=== PATIENT | male | born 1945 | race Caucasian/White ===

== ENCOUNTER → 2016-04-12 | Outpatient (CLI) | payer OTHER, MEDICARE | LOC: BHFA 09:15 | PROVIDERS: ATTEND Internal Medicine Cardiovascular Disease | DX: I48.91 Unspecified atrial fibrillation (principal) ==

== ENCOUNTER → 2016-04-28 | Outpatient (CLI) | payer OTHER, MEDICARE ==
--- NOTE | 2016-04-28 11:04 | US ---
Renal Ultrasound With Doppler Evaluation Indication: Hypertension. Comparison: None available. Technique: The kidneys, abdominal aorta, renal arteries, and renal veins were interrogated with andrews -scale, color, and spectral Doppler imaging. Findings: The right kidney measures 12.3 x 7.4 x 6.5 cm and the left kidney measures approximately 1 2.8 x 7.7 x 6.2 cm. Multiple simple-appearing cysts are present bilaterally, with some difficult to v isualize due to body habitus. The largest cyst is in the mid left kidney, measuring 7.5 x 4.3 cm. The re is no hydronephrosis. Cortical thickness is normal. Doppler analysis reveals patent bilateral renal arteries and veins, with normal waveforms. The arter ial waveforms in the main renal arteries and the interlobar branches reveal normal prompt upstroke ti mes all less than 70 ms. No tardus parvus waveform. The renal artery to aortic velocity ratio is le ss than 3.5 bilaterally (normal). The abdominal aorta is normal caliber, with mild atherosclerosis. The bladder is normal. Bilateral ureteral jets are demonstrated on color Doppler imaging. Impressions: 1. No sonographic evidence of renal artery stenosis. 2. Bilateral renal cysts.
== END ==
LOC: BRMIMAGING 08:31
PROVIDERS: ATTEND Internal Medicine Nephrology
DX: Z03.89 Encounter for observation for other suspected diseases and conditions ruled out (principal); I10 Essential (primary) hypertension; N28.1 Cyst of kidney, acquired
CPT/HCPCS: 76770-PO

== ENCOUNTER → 2016-05-13 | Outpatient (CLI) | payer OTHER, MEDICARE | LOC: BHFA 08:30 | PROVIDERS: ATTEND Internal Medicine Cardiovascular Disease | DX: I50.21 Acute systolic (congestive) heart failure (principal); I08.0 Rheumatic disorders of both mitral and aortic valves | CPT/HCPCS: 78452; 93017; A9500 ==

== ENCOUNTER → 2017-02-27 | Outpatient (CLI) | payer OTHER, MEDICARE | LOC: FIMAGING 11:31 | PROVIDERS: ATTEND Family Medicine | DX: M54.16 Radiculopathy, lumbar region (principal); M51.36 Other intervertebral disc degeneration, lumbar region ==

== ENCOUNTER → 2017-03-06 | Outpatient (CLI) | payer OTHER, MEDICARE | LOC: FIMAGING 09:24 | PROVIDERS: ATTEND Family Medicine | DX: M47.9 Spondylosis, unspecified (principal); R60.9 Edema, unspecified; N28.1 Cyst of kidney, acquired ==

== ENCOUNTER → 2017-05-13 | Outpatient (CLI) | payer OTHER, MEDICARE | LOC: FIMAGING 09:21 | PROVIDERS: ATTEND Internal Medicine Nephrology | DX: N18.2 Chronic kidney disease, stage 2 (mild) (principal); K80.20 Calculus of gallbladder without cholecystitis without obstruction ==

== ENCOUNTER 2017-09-30 22:06 | Emergency (ER) | payer OTHER, MEDICARE ==
--- NOTE | 2017-09-30 22:29 | EDPHY ---
H & P Stated Complaint: fall right eyebrow laceration Source: Patient, Family () Exam Limitations: No limitations - Personal History Current Tetanus Diphtheria and Acellular Pertussis (TDAP): Yes Tetanus Vaccine Date: 2009 - Medical/Surgical History Hx Asthma: No Hx Chronic Respiratory Disease: No Hx Diabetes: No Hx Cardiac Disease: Yes Hx Renal Disease: No Hx Cirrhosis: No Hx Alcoholism: Yes Hx HIV/AIDS: No Hx Splenectomy or Spleen Trauma: No Other PMH: atrial fibrillation. PSHx: achilles tendon transplant, knee surgery , mult orthopedic surgeries - Social History Smoking Status: Never smoked Time Seen by Provider: 09/30/17 22:24 HPI/ROS: HPI: This is a 71-year-old male who presents with Chief Complaint: Fall, R eyebrow lac, blood thinners Location: Right eyebrow Quality: Laceration Duration: Prior to arrival Signs and Symptoms: + bleeding, no radiation, no numbness, no weakness, no tingling, no incontinence, no decreased range of motion, no swelling, no pain, no fever Timing: Acute Severity: [id number] Context: Patient has a history atrial fibrillation on Pradaxa presents accompanied by his for accidentally tripping over the stones on the back patio when he was trying to close the grill. The patient and his report that they had a dinner democrat this evening and were [place] now and drinking wine. Denies any dizziness, chest pain, shortness of breath. He reports that his sandal cuts stuck on the uneven stone outside and he lost his balance and fell forward striking his right eyebrow on the stone. This was witnessed by his . Was ambulatory at the scene and remembers all events. Denies LOC/ head injury/neck pain/dizziness/nausea/vomiting/amnesia. Last tetanus booster given in 2009. Modifying Factors: None Comment: ROS: see HPI Constitutional: No fever, no chills, no weight loss Eyes: No blurred vision Respiratory: No shortness of breath, no cough Cardiovascular: No chest pain Gastrointestinal: No nausea, no vomiting no diarrhea Genitourinary: No dysuria Extremities: No myalgias Neurologic: No weakness, no numbness Skin: No rashes Hematologic: No bruising, no bleeding MEDICAL/SURGICAL/SOCIAL HISTORY: Medical history: atrial fibrillation PSHx: Achilles tendon transplant, knee surgery, multiple orthopedic surgeries Social history: . Retired. CONSTITUTIONAL: Extremely polite and cooperative elderly white male, at bedside, awake and alert, no obvious distress HEENT: 0.5 in deep, simple, linear laceration above the right eyebrow and normocephalic, PERRL, EOMI. no globe entrapment, no raccoon eyes. no Burgess signs.Tympanic membranes clear. No tympanic membrane rupture. Nares patent; no septal hematoma. Oropharynx clear, no exudate and moist pink mucosa. No malocclusion. no dental trauma. Airway patent. No lymphadenopathy. NECK: supple, no midline tenderness, flexion 45 degrees, extension 45 degrees, right and left lateral flexion 45 degrees. No meningismus. Cardiovascular: Normal S1/S2, regular rate, regular rhythm, without murmur rub or gallop. PULMONARY/CHEST: Symmetrical and nontender. no crepitus. Clear to auscultation bilaterally. Good air movement. No accessory muscle usage. ABDOMEN: Soft, nondistended, nontender, no ecchymosis, no rebound, no guarding , no peritoneal signs, no masses or organomegaly. No CVAT. PELVIC: no pain with rocking; bilateral hips flexion 125 degrees, extension 30 degrees, with no pain internal rotation and no pain external rotation. BACK: No midline tenderness, no paraspinous spasm, deep tendon reflexes 2/2, no pain with straight leg raise EXTREMITIES: 2/2 pulses, no deformities, no clubbing, no cyanosis or edema. NEUROLOGICAL: no focal neuro deficits. GCS 15. SKIN: Warm and dry, abrasions noted to right cheek and tip of right nose. no erythema. no rash. Good capillary refill. (Génesis,Terra) Constitutional: Initial Vital Signs Temperature (C) 36.6 C 09/30/17 22:11 Heart Rate 84 09/30/17 22:11 Respiratory Rate 18 09/30/17 22:11 Blood Pressure 122/78 H 09/30/17 22:11 O2 Sat (%) 95 09/30/17 22:11 O2 Delivery Mode Room Air Allergies/Adverse Reactions: No Known Allergies Allergy (Unverified 09/30/17 22:11) Home Medications: Medication Instructions Recorded Calcium Citrate [Citracal] 200 mg PO DAILY 11/21/14 Dabigatran Etexilate Mesyl 150 mg PO BID 11/21/14 [Pradaxa 150 MG (*)] Diltiazem HCl [DILTIAZEM ER] 180 mg PO DAILY@08 11/21/14 Glucosamine Sulfate [Glucosamine 500 mg PO DAILY 11/21/14 Sulfate 500 MG (*)] Herbals/Supplements -Info Only 1 ea PO DAILY 11/21/14 Levothyroxine [Synthroid 25 mcg 25 mcg PO DAILY06 11/21/14 (*)] Magnesium Oxide [Magnesium Oxide 400 mg PO DAILY 11/21/14 400 mg (*)] Ranitidine HCl 150 mg PO BID PRN #30 tablet 11/21/14 Medical Decision Making - Diagnostics Imaging Results: Imaging Impressions Head CT 09/30/17 22:29 Impression: 1. Mild to moderate age-related atrophy. 2. No hemorrhage, mass effect, or definite acute peripheral infarct. 3. Extensive nonspecific hypodensities in the white matter of bilateral cerebral hemispheres. Differential diagnosis includes microvascular ischemic disease, post-infectious/post-inflammatory sequela, atypical demyelinating disease, or migraine-related sequela. Small white matter lacunar infarcts may also have this appearance. 4. Soft tissue swelling superior to the right orbit with associated laceration. 5. Complete opacification of the right maxillary sinus. If symptoms worsen, additional imaging may be necessary. Findings discussed with Oly Capps PAC at 23:26 hour, 09/30/2017. Procedures: Procedure: Laceration repair. Verbal consent was obtained from the patient. The 1/2 inch, complex, deep, linear laceration above the right eyebrow was anesthetized in the usual fashion using 6 mL 0.5% bupivacaine with epinephrine. The wound was irrigated, draped and explored to its base with a gloved finger. There were no deep structures involved. No tendon injury was identified. The wound was repaired with a 2 layer closure; #4 buried horizontal mattress sutures of 5 0 Vicryl and for the subcutaneous layer I used #3, 5-0 Prolene. Good hemostasis was achieved and patient tolerated procedure well. Steri-Strips applied. The procedure was performed by myself. (Oly Capps) ED Course/Re-evaluation: Based on [place] CT head protocol patient is older than 65 years age in on blood thinners there for head CT scan ordered. Based on [facility] protocol cervical CT scan not indicated. Tetanus booster is up-to-date. Fall was accidental and witnessed. There is no indication for syncope, seizure activity, CVA. Called by radiologist who advised that head CT shows no acute intracranial process. Laceration repaired. Verbal and written wound care instructions provided. This patient was seen under the supervision of my secondary supervising physician. I evaluated care for this patient independently. Discussed this patient with Dr. Ramos. (Oly Capps) PHYSICIAN DOCUMENTATION: The patient was evaluated and managed by the Physician Stave Hewer. My co- signature indicates that I have reviewed this chart and I agree with the findings and plan of care as documented. I am the secondary supervising physician. (Meka Ramos) Differential Diagnosis: Head injury including but not limited to concussion, skull fracture, intraparenchymal contusion, subarachnoid, subdural and epidural hematoma. (Oly Capps) Departure - Departure Disposition: Home, Routine, Self-Care Clinical Impression: Laceration of eyebrow without complication, Chronic anticoagulation, Abrasion of face Condition: Good Instructions: Care For Your Stitches (ED), Concussion (ED), Facial Laceration ( ED) Additional Instructions: Keep the laceration and sutures dry for 48 hours. After 48 hours, you may wash the site daily with mild soap and water; then pat dry. Take Tylenol 650 mg every 4 hours and/or Ibuprofen 600 mg every 8 hours with food as needed for pain. You did sustain a head injury tonight and it would be recommended to observe concussion precautions. Wound Care Follow-Up: Removal of 3 sutures in [5-7] days. Suture removal is complimentary in uncomplicated cases. Infection or abnormal findings would require reevaluation by the MD. In that case, you may be billed. Referrals: EDMUND LÓPEZ [Primary Care Provider] - Follow Up Only If Needed
[2017-09-30 23:53] VITALS: BP 114/67
== END 2017-09-30 23:53 | disposition home or self-care (01) ==
PROC: 08QNXZZ Repair Right Upper Eyelid, External Approach (ICD-10-PCS; principal; 2017-09-30)
DX: S01.111A Laceration without foreign body of right eyelid and periocular area, initial encounter (principal); Z79.01 Long term (current) use of anticoagulants; W01.0XXA Fall on same level from slipping, tripping and stumbling without subsequent striking against object, initial encounter; Y92.007 Garden or yard of unspecified non-institutional (private) residence as the place of occurrence of the external cause; Y99.8 Other external cause status; Y93.89 Activity, other specified

== ENCOUNTER → 2018-07-07 | Outpatient (CLI) | payer OTHER, MEDICARE | LOC: BHFA 13:30 | PROVIDERS: ATTEND Internal Medicine Interventional Cardiology | DX: I48.91 Unspecified atrial fibrillation (principal); I25.5 Ischemic cardiomyopathy; R06.09 Other forms of dyspnea | CPT/HCPCS: 78452; 93017; A9500; J2785 ==